=== PATIENT | male | born 1950 | race Hispanic/Latino ===

== ENCOUNTER 2017-08-30 18:43 | Emergency (ER) | payer BC, MEDICARE ==
[2017-08-30 19:28] LABS: RAPID GROUP A STREP NEGATIVE (NEGATIVE)
[2017-08-30 19:28] LABS: APPEARANCE,URINE Clear (CLEAR); BILIRUBIN,URINE Negative (NEGATIVE); COLOR,URINE Yellow (YELLOW); GLUCOSE, URINE (UA) Negative (NEGATIVE); KETONES,URINE Negative (NEGATIVE); LEUKOCYTE ESTERASE ,URINE Negative (NEGATIVE); NITRATE,URINE Negative (NEGATIVE); OCCULT BLOOD,URINE Negative (NEGATIVE); PH,URINE 7.5 (5.0-8.0); PROTEIN,URINE Negative (NEGATIVE)
== END 2017-08-30 20:19 | disposition home or self-care (01) ==
LOC: EDH 18:43
DX: J01.90 Acute sinusitis, unspecified (principal); R50.81 Fever presenting with conditions classified elsewhere; R05 Cough; E11.9 Type 2 diabetes mellitus without complications; I10 Essential (primary) hypertension; E78.5 Hyperlipidemia, unspecified; I25.10 Atherosclerotic heart disease of native coronary artery without angina pectoris; Z88.8 Allergy status to other drugs, medicaments and biological substances; Z87.891 Personal history of nicotine dependence
CPT/HCPCS: 71045; 81003; 87804; 87880

== ENCOUNTER 2020-02-03 14:02 | Emergency (ER) | payer MEDICARE ==
[2020-02-03] MEDS ORDERED: DiphenhydrAMINE HCL 50 MG/ML VIAL ONE (14:29)
[2020-02-03] MEDS ORDERED: DEXAMETHASONE SOD PHOSPHATE 10MG/ML 1ML VIAL ONE (14:29)
== END 2020-02-03 15:50 | disposition home or self-care (01) ==
LOC: EDH 14:02
DX: T63.461A Toxic effect of venom of wasps, accidental (unintentional), initial encounter (principal); M79.89 Other specified soft tissue disorders; I10 Essential (primary) hypertension; E11.9 Type 2 diabetes mellitus without complications; E78.5 Hyperlipidemia, unspecified; I25.10 Atherosclerotic heart disease of native coronary artery without angina pectoris; Z87.891 Personal history of nicotine dependence; Y92.096 Garden or yard of other non-institutional residence as the place of occurrence of the external cause
CPT/HCPCS: 96372 ×2; 99284; J1100; J1200

== ENCOUNTER 2021-03-26 14:45 | Inpatient (IN) | payer MEDICARE ==
[~2021-03-26] VITALS: Ht 165.1 cm; Wt 96.1 kg
[2021-03-26 15:14] LABS: BASOPHILS % (AUTO) 0.9 % (0.0-5.0); EOSINOPHILS % (AUTO) 3.3 % (0.0-8.0); LYMPHOCYTES % (AUTO) 33.2 % (21.0-51.0); MEAN CORPUSCULAR HEMOGLOBIN 26.6 pg (27.0-33.0); MEAN CORPUSCULAR HGB CONC 31.7 g/dL (32.0-36.0); MEAN CORPUSCULAR VOLUME 83.8 fL (79-99); MONOCYTES % (AUTO) 10.4 % (3.0-13.0); NEUTROPHILS % (AUTO) 51.9 % (40.0-77.0); PLATELET COUNT (AUTO) 237 K/uL (130-400); RED BLOOD CELL COUNT(AUTO) 4.89 MIL/uL (4.50-6.20); WHITE BLOOD COUNT (AUTO) 10.2 K/uL (4.8-10.8)
[2021-03-26 15:15] LABS: APPEARANCE,URINE Clear (CLEAR); BILIRUBIN,URINE Negative (NEGATIVE); COLOR,URINE Yellow (YELLOW); GLUCOSE, URINE (UA) Negative (NEGATIVE); KETONES,URINE Negative (NEGATIVE); LEUKOCYTE ESTERASE ,URINE Negative (NEGATIVE); NITRATE,URINE Negative (NEGATIVE); OCCULT BLOOD,URINE Negative (NEGATIVE); PH,URINE 5.5 (5.0-8.0); PROTEIN,URINE POS 2+ mg/dL (NEGATIVE)
[2021-03-26 15:18] LABS: CREATININE 1.1 mg/dL (0.5-1.5); POTASSIUM 3.8 mmol/L (3.5-5.1)
[2021-03-26 15:27] LABS: ALBUMIN 3.8 g/dL (3.5-5.0); BILIRUBIN,TOTAL 1.4 mg/dL (0.2-1.0); TOTAL PROTEIN, SERUM 8.7 g/dL (6.0-8.3)
[2021-03-26] MEDS ORDERED: DILTIAZEM 25MG INJ IVP SCH (15:30)
[2021-03-26 15:37] LABS: BACTERIA,URINE Few /HPF (None Seen); RBC,URINE 0-1 /HPF (0-1); SQUAMOUS EPITHELIAL CELL,UR Few /HPF (0-2)
[2021-03-26 15:38] LABS: MUCUS,URINE Rare LPF (None Seen)
[2021-03-26] MEDS ORDERED: 0.9%NACL 1000ML 1,000 ML IV ONE (16:00)
[2021-03-26] MEDS: DILTIAZEM 125MG+100 ML NS 125 ML IV SCH ×2 (17:13→17:55)
[2021-03-26] MEDS ORDERED: ASPI-1197 PO (18:00)
[2021-03-26] MEDS ORDERED: METO-391 PO (18:00)
[2021-03-26] MEDS ORDERED: METF-444 PO (18:00)
[2021-03-26] MEDS ORDERED: APIX5TAB PO (18:00)
[2021-03-26] MEDS ORDERED: ROSU20TA31 PO (18:00)
[2021-03-26] MEDS ORDERED: LISI40TA9 PO (18:00)
[2021-03-26] MEDS ORDERED: AMLO2.5T4 PO (18:00)
[2021-03-26] MEDS ORDERED: ALLO100T PO (18:00)
[2021-03-26] MEDS: INSULIN HUMULIN R 100 UNIT/ML 3ML SQ SCH (21:00)
[2021-03-26] MEDS: ENOXAPARIN SODIUM 100 MG/1 ML SQ SCH (21:46)
[2021-03-26 22:07] LABS: MAGNESIUM 1.6 mg/dL (1.80-2.40)
[2021-03-26 22:53] VITALS: BP 125/78
[2021-03-27 01:16] LABS: AMPHET/METH SCREEN,URINE NEGATIVE (NEGATIVE); BARBITURATE SCREEN, URINE NEGATIVE (NEGATIVE); BENZODIAZEPINES SCREEN,URINE NEGATIVE (NEGATIVE); CANNABINOID SCREEN,URINE NEGATIVE (NEGATIVE); COCAINE SCREEN,URINE NEGATIVE (NEGATIVE); OPIATE SCREEN,URINE NEGATIVE (NEGATIVE); PHENCYCLIDINE SCREEN,URINE NEGATIVE (NEGATIVE)
[2021-03-27 04:17] VITALS: BP 111/51
[2021-03-27 06:16] LABS: EOSINOPHILS % (AUTO) 3.7 % (0.0-8.0); HEMATOCRIT 37.8 % (42-54); LYMPHOCYTES % (AUTO) 30.4 % (21.0-51.0); MEAN CORPUSCULAR HEMOGLOBIN 26.5 pg (27.0-33.0); MEAN CORPUSCULAR HGB CONC 31.5 g/dL (32.0-36.0); MEAN CORPUSCULAR VOLUME 84.2 fL (79-99); MONOCYTES % (AUTO) 9.8 % (3.0-13.0); NEUTROPHILS % (AUTO) 54.7 % (40.0-77.0); PLATELET COUNT (AUTO) 186 K/uL (130-400); RED BLOOD CELL COUNT(AUTO) 4.49 MIL/uL (4.50-6.20); RED CELL DISTRIBUTION WIDTH 15.1 % (11.0-15.5); WHITE BLOOD COUNT (AUTO) 8.1 K/uL (4.8-10.8)
[2021-03-27] MEDS ORDERED: MAGNESIUM 2GM PREMIX 50ML 50 ML IV SCH (06:30)
[2021-03-27 06:35] LABS: CREATININE 0.9 mg/dL (0.5-1.5); MAGNESIUM 1.7 mg/dL (1.80-2.40); POTASSIUM 3.5 mmol/L (3.5-5.1)
[2021-03-27] MEDS: INSULIN HUMULIN R 100 UNIT/ML 3ML SQ SCH ×4 (07:30→20:57)
[2021-03-27] MEDS ORDERED: POTASSIUM CHLORIDE 20MEQ/100ML 100 ML IV PRN (08:00)
[2021-03-27] MEDS ORDERED: POTASSIUM CHLORIDE 10% ELIXIR 20 MEQ/15 ML UDCUP PO PRN (08:00)
[2021-03-27 08:52] VITALS: BP 121/66
[2021-03-27] MEDS: ALLOPURINOL 100 MG TABLET PO SCH (09:18)
[2021-03-27] MEDS: ENOXAPARIN SODIUM 100 MG/1 ML SQ SCH ×2 (09:19→20:51)
[2021-03-27] MEDS: ASPIRIN 81 MG EC TAB PO SCH (09:19)
[2021-03-27] MEDS: ATORVASTATIN 40 MG TABLET PO SCH (09:19)
[2021-03-27] MEDS: PANTOPRAZOLE 40 MG TAB DR PO SCH (09:19)
[2021-03-27] MEDS: KCL 20 MEQ ERTAB PO PRN ×2 (09:21→16:29)
[2021-03-27] MEDS: METOPROLOL SUCCINATE 50 MG TAB.SR.24H PO SCH ×2 (10:55→20:50)
[2021-03-27 12:00] VITALS: BP 121/62
[2021-03-27] MEDS: DIGOXIN 250 MCG/ML 2ML AMP IV SCH ×3 (12:38→20:50)
[2021-03-27] MEDS: DILTIAZEM 125MG+100 ML NS 125 ML IV SCH (13:10)
[2021-03-27 16:59] VITALS: BP 129/89
[2021-03-27 20:01] VITALS: BP 140/73
[2021-03-27 23:56] VITALS: BP 103/58
[2021-03-28 03:43] VITALS: BP 120/66
[2021-03-28] MEDS: INSULIN HUMULIN R 100 UNIT/ML 3ML SQ SCH ×4 (07:30→21:00)
[2021-03-28 08:45] VITALS: BP 144/80
[2021-03-28] MEDS: ENOXAPARIN SODIUM 100 MG/1 ML SQ SCH ×2 (08:51→21:16)
[2021-03-28] MEDS: AMLODIPINE 2.5 MG TAB PO SCH (08:51)
[2021-03-28] MEDS: ASPIRIN 81 MG EC TAB PO SCH (08:51)
[2021-03-28] MEDS: ATORVASTATIN 40 MG TABLET PO SCH (08:51)
[2021-03-28] MEDS: PANTOPRAZOLE 40 MG TAB DR PO SCH (08:51)
[2021-03-28] MEDS: ALLOPURINOL 100 MG TABLET PO SCH (08:51)
[2021-03-28] MEDS: METOPROLOL SUCCINATE 50 MG TAB.SR.24H PO SCH ×2 (08:52→21:16)
[2021-03-28] MEDS: DIGOXIN 125 MCG TABLET PO SCH (08:53)
[2021-03-28] MEDS ORDERED: NON-FORMULARY MEDICATION 1 EACH (Rosuvastatin Calcium 20 MG) PO SCH (09:00)
[2021-03-28] MEDS ORDERED: ASPIRIN 81MG CHEW TAB PO SCH (09:00)
[2021-03-28 09:30] LABS: HEMATOCRIT 37.2 % (42-54); MEAN CORPUSCULAR HEMOGLOBIN 26.6 pg (27.0-33.0); MEAN CORPUSCULAR HGB CONC 31.5 g/dL (32.0-36.0); MEAN CORPUSCULAR VOLUME 84.5 fL (79-99); RED BLOOD CELL COUNT(AUTO) 4.4 MIL/uL (4.50-6.20); RED CELL DISTRIBUTION WIDTH 15.1 % (11.0-15.5); WHITE BLOOD COUNT (AUTO) 6.6 K/uL (4.8-10.8)
[2021-03-28 09:43] LABS: ALBUMIN 3.2 g/dL (3.5-5.0); BILIRUBIN,TOTAL 1.3 mg/dL (0.2-1.0); CREATININE 1.1 mg/dL (0.5-1.5); POTASSIUM 4.4 mmol/L (3.5-5.1); TOTAL PROTEIN, SERUM 7.5 g/dL (6.0-8.3)
[2021-03-28 12:08] VITALS: BP 123/71
[2021-03-28 16:48] VITALS: BP 134/75
[2021-03-28 19:33] VITALS: BP 122/76
[2021-03-28] MEDS: DILTIAZEM 125MG+100 ML NS 125 ML IV SCH (21:16)
[2021-03-28 23:54] VITALS: BP 117/71
[2021-03-29 03:13] VITALS: BP 119/72
[2021-03-29 04:51] LABS: HEMATOCRIT 38.6 % (42-54); MEAN CORPUSCULAR HEMOGLOBIN 26.6 pg (27.0-33.0); MEAN CORPUSCULAR HGB CONC 31.6 g/dL (32.0-36.0); MEAN CORPUSCULAR VOLUME 84.1 fL (79-99); RED BLOOD CELL COUNT(AUTO) 4.59 MIL/uL (4.50-6.20); WHITE BLOOD COUNT (AUTO) 6.7 K/uL (4.8-10.8)
[2021-03-29 05:04] LABS: ALBUMIN 3.3 g/dL (3.5-5.0); BILIRUBIN,TOTAL 1.3 mg/dL (0.2-1.0); CREATININE 0.9 mg/dL (0.5-1.5); POTASSIUM 4.1 mmol/L (3.5-5.1); TOTAL PROTEIN, SERUM 7.6 g/dL (6.0-8.3)
[2021-03-29] MEDS: INSULIN HUMULIN R 100 UNIT/ML 3ML SQ SCH (07:30)
[2021-03-29 08:14] VITALS: BP 132/78
[2021-03-29] MEDS ORDERED: MAGNESIUM 4GM PREMIX 100ML 100 ML IV PRN (08:30)
[2021-03-29] MEDS: PANTOPRAZOLE 40 MG TAB DR PO SCH (08:51)
[2021-03-29] MEDS: ASPIRIN 81 MG EC TAB PO SCH (08:51)
[2021-03-29] MEDS: ALLOPURINOL 100 MG TABLET PO SCH (08:51)
[2021-03-29] MEDS: AMLODIPINE 2.5 MG TAB PO SCH (08:51)
[2021-03-29] MEDS: ATORVASTATIN 40 MG TABLET PO SCH (08:51)
[2021-03-29] MEDS: DIGOXIN 125 MCG TABLET PO SCH (08:58)
[2021-03-29] MEDS ORDERED: APIXABAN 5 MG TABLET PO SCH (09:00)
[2021-03-29] MEDS ORDERED: METOPROLOL SUCCINATE 50 MG TAB.SR.24H PO SCH ×2 (09:00)
== END 2021-03-29 12:15 | disposition home or self-care (01) | DRG 310 ==
LOC: EDH 14:45 → EDHIP 17:33 → OBSVTOIN 17:33 → 4DH 22:43
PROVIDERS: ADMIT Internal Medicine; ATTEND Internal Medicine
DX: I48.0 Paroxysmal atrial fibrillation (principal); E78.5 Hyperlipidemia, unspecified; Z20.822 Contact with and (suspected) exposure to COVID-19; E11.51 Type 2 diabetes mellitus with diabetic peripheral angiopathy without gangrene; I11.9 Hypertensive heart disease without heart failure; E66.9 Obesity, unspecified; I25.10 Atherosclerotic heart disease of native coronary artery without angina pectoris; E78.00 Pure hypercholesterolemia, unspecified; M10.9 Gout, unspecified; Z68.35 Body mass index [BMI] 35.0-35.9, adult; Z79.01 Long term (current) use of anticoagulants; Z79.82 Long term (current) use of aspirin; Z79.84 Long term (current) use of oral hypoglycemic drugs; Z79.899 Other long term (current) drug therapy; Z87.891 Personal history of nicotine dependence; Z95.1 Presence of aortocoronary bypass graft; Z88.8 Allergy status to other drugs, medicaments and biological substances; Z82.49 Family history of ischemic heart disease and other diseases of the circulatory system; Z83.3 Family history of diabetes mellitus; Z82.3 Family history of stroke
CPT/HCPCS: 36415; 71045; 80048; 80053; 80305; 81001; 82550; 82948; 83735; 83874; 83880; 84145; 84443; 84481; 84484; 85025; 85027; 87635; 93005; 93306; 93356; 99291; G0378; J1160; J1650; J1815; J3475; J3490

== ENCOUNTER 2021-04-12 16:54 | Observation (INO) | payer MEDICARE ==
[~2021-04-12] VITALS: Ht 165.1 cm; Wt 99.8 kg
[~2021-04-12 16:54] MED LIST: ALLO100T PO; AMLO2.5T4 PO; APIX5TAB PO; ASPI-1197 PO; LISI40TA9 PO; METF-444 PO; METO-391 PO; ROSU20TA31 PO
[2021-04-12] MEDS ORDERED: DILTIAZEM 25MG INJ IVP ONE (17:14)
[2021-04-12] MEDS ORDERED: DILTIAZEM 125 MG/25 ML INJ IV ONE (17:14)
[2021-04-12] MEDS ORDERED: 0.9%NACL 100ML 100 ML ONE (17:15)
[2021-04-12 17:21] LABS: BASOPHILS % (AUTO) 0.7 % (0.0-5.0); EOSINOPHILS % (AUTO) 2.3 % (0.0-8.0); HEMATOCRIT 33.5 % (42-54); MEAN CORPUSCULAR HEMOGLOBIN 25.9 pg (27.0-33.0); MEAN CORPUSCULAR HGB CONC 31.9 g/dL (32.0-36.0); MEAN CORPUSCULAR VOLUME 81.1 fL (79-99); NEUTROPHILS % (AUTO) 60.6 % (40.0-77.0); PLATELET COUNT (AUTO) 232 K/uL (130-400); RED BLOOD CELL COUNT(AUTO) 4.13 MIL/uL (4.50-6.20); RED CELL DISTRIBUTION WIDTH 14.8 % (11.0-15.5); WHITE BLOOD COUNT (AUTO) 9.4 K/uL (4.8-10.8)
[2021-04-12] MEDS ORDERED: ASPIRIN 81MG CHEW TAB PO ONE (17:30)
[2021-04-12] MEDS ORDERED: DILTIAZEM 125 MG/25 ML INJ 125 MG in 0.9%NACL 100ML 100 ML IV SCH (17:30)
[2021-04-12] MEDS ORDERED: DILTIAZEM 25MG INJ IVP SCH (17:30)
[2021-04-12 17:32] LABS: CREATININE 1.1 mg/dL (0.5-1.5); POTASSIUM 3.8 mmol/L (3.5-5.1)
[2021-04-12 17:33] LABS: INR 1.1 (0.85-1.15); PROTHROMBIN TIME 11.9 SEC (9.6-11.6)
[2021-04-12 17:34] LABS: PARTIAL THROMBOPLASTIN TIME 28.1 SEC (26.3-35.5)
[2021-04-12 17:36] LABS: ALBUMIN 3.5 g/dL (3.5-5.0); BILIRUBIN,TOTAL 1.4 mg/dL (0.2-1.0); MAGNESIUM 1.7 mg/dL (1.80-2.40); TOTAL PROTEIN, SERUM 8.2 g/dL (6.0-8.3)
[2021-04-12] MEDS ORDERED: MAGNESIUM 2GM PREMIX 50ML 50 ML IV SCH ×3 (18:00→20:00)
[2021-04-12] MEDS ORDERED: POTASSIUM CHLORIDE 10% ELIXIR 20 MEQ/15 ML UDCUP PO ONE (18:00)
[2021-04-12] MEDS ORDERED: 0.9%NACL 1000ML 1,000 ML IV SCH (19:00)
[2021-04-12] MEDS ORDERED: ONDANSETRON 4MG INJ IV PRN (19:00)
[2021-04-12] MEDS ORDERED: NITROGLYCERIN 0.4 MG SL TAB SL PRN (19:00)
[2021-04-12] MEDS ORDERED: ACETAMINOPHEN 325 MG TAB PO PRN ×2 (19:00)
[2021-04-12 19:02] LABS: APPEARANCE,URINE Clear (CLEAR); BILIRUBIN,URINE Negative (NEGATIVE); COLOR,URINE Yellow (YELLOW); GLUCOSE, URINE (UA) Negative (NEGATIVE); KETONES,URINE Negative (NEGATIVE); LEUKOCYTE ESTERASE ,URINE Negative (NEGATIVE); NITRATE,URINE Negative (NEGATIVE); OCCULT BLOOD,URINE Negative (NEGATIVE); PROTEIN,URINE Negative (NEGATIVE); UROBILINOGEN,URINE 0.2 mg/dL (0.2-1.0)
[2021-04-12 19:05] LABS: HEMOGLOBIN A1C 7.2 % (4.0-6.0)
[2021-04-12 19:09] LABS: AMPHET/METH SCREEN,URINE NEGATIVE (NEGATIVE); BARBITURATE SCREEN, URINE NEGATIVE (NEGATIVE); BENZODIAZEPINES SCREEN,URINE NEGATIVE (NEGATIVE); CANNABINOID SCREEN,URINE NEGATIVE (NEGATIVE); COCAINE SCREEN,URINE NEGATIVE (NEGATIVE); OPIATE SCREEN,URINE NEGATIVE (NEGATIVE); PHENCYCLIDINE SCREEN,URINE NEGATIVE (NEGATIVE)
[2021-04-12] MEDS ORDERED: ASPIRIN 81 MG EC TAB PO SCH (20:00)
[2021-04-12] MEDS: APIXABAN 5 MG TABLET PO SCH (21:22)
[2021-04-12] MEDS: FAMOTIDINE 20MG TAB PO SCH (21:22)
[2021-04-13 06:55] LABS: BASOPHILS % (AUTO) 1.1 % (0.0-5.0); EOSINOPHILS % (AUTO) 4.1 % (0.0-8.0); HEMATOCRIT 31.8 % (42-54); LYMPHOCYTES % (AUTO) 23.5 % (21.0-51.0); MEAN CORPUSCULAR HEMOGLOBIN 25.7 pg (27.0-33.0); MEAN CORPUSCULAR HGB CONC 30.5 g/dL (32.0-36.0); MEAN CORPUSCULAR VOLUME 84.1 fL (79-99); MONOCYTES % (AUTO) 10.8 % (3.0-13.0); PLATELET COUNT (AUTO) 177 K/uL (130-400); RED BLOOD CELL COUNT(AUTO) 3.78 MIL/uL (4.50-6.20); RED CELL DISTRIBUTION WIDTH 14.9 % (11.0-15.5); WHITE BLOOD COUNT (AUTO) 6.7 K/uL (4.8-10.8)
[2021-04-13] MEDS ORDERED: MAGNESIUM 2GM PREMIX 50ML 50 ML IV SCH (07:00)
[2021-04-13 07:01] LABS: RETICULOCYTE % (AUTO) 2.62 % (0.42-2.23)
[2021-04-13] MEDS ORDERED: METOPROLOL SUCCINATE 50 MG TAB.SR.24H PO ONE ×2 (07:03→07:30)
[2021-04-13 07:28] LABS: ALBUMIN 3.2 g/dL (3.5-5.0); BILIRUBIN,TOTAL 1.6 mg/dL (0.2-1.0); POTASSIUM 3.8 mmol/L (3.5-5.1); TOTAL PROTEIN, SERUM 7.3 g/dL (6.0-8.3)
[2021-04-13] MEDS ORDERED: COMPOUND IV MISC 1 EACH IVSOLN MISC PRN (07:30)
[2021-04-13] MEDS ORDERED: EPOETIN ALFA-EPBX (NON-ESRD) 10,000 UNIT/ML VIAL SQ SCH (07:30)
[2021-04-13] MEDS ORDERED: IRON SUCROSE COMPLEX 500 MG in 0.9%NACL 50ML 50 ML IV SCH (07:30)
[2021-04-13 07:38] LABS: BILIRUBIN,DIRECT 0.3 mg/dL (0.0-0.3)
[2021-04-13 07:51] LABS: % IRON SATURATION 6.9 % (30-44)
[2021-04-13] MEDS: APIXABAN 5 MG TABLET PO SCH (08:56)
[2021-04-13] MEDS: FAMOTIDINE 20MG TAB PO SCH (08:57)
[2021-04-13] MEDS ORDERED: METOPROLOL SUCCINATE 50 MG TAB.SR.24H PO SCH (09:00)
[2021-04-13] MEDS ORDERED: ATORVASTATIN 40 MG TABLET PO SCH (09:00)
[2021-04-13] MEDS ORDERED: METFORMIN HCL 500 MG TABLET PO SCH (09:00)
[2021-04-13] MEDS ORDERED: ALLOPURINOL 100 MG TABLET PO SCH (09:00)
[2021-04-13] MEDS ORDERED: ASPIRIN 81MG CHEW TAB PO SCH (09:00)
[2021-04-13] MEDS ORDERED: LISINOPRIL 40 MG TABLET PO SCH (09:00)
[2021-04-13] MEDS ORDERED: AMLODIPINE 2.5 MG TAB PO SCH (09:00)
[2021-04-13] MEDS ORDERED: LISINOPRIL 20 MG TABLET PO SCH (09:00)
[2021-04-13] MEDS ORDERED: LISI30TA4 PO (09:05)
[2021-04-13] MEDS ORDERED: METO-409 PO (09:05)
[2021-04-13 14:42] VITALS: BP 127/62
== END 2021-04-13 14:40 | disposition home or self-care (01) ==
LOC: EDH 16:54 → EDHIP 18:38 → INTOOBSV 18:38 → EDHIP 04-13 14:40
PROVIDERS: ADMIT Internal Medicine; ATTEND Internal Medicine
DX: I48.20 Chronic atrial fibrillation, unspecified (principal); Z20.822 Contact with and (suspected) exposure to COVID-19; I25.10 Atherosclerotic heart disease of native coronary artery without angina pectoris; E83.42 Hypomagnesemia; E66.9 Obesity, unspecified; I10 Essential (primary) hypertension; I71.4 Abdominal aortic aneurysm, without rupture; E78.5 Hyperlipidemia, unspecified; E78.00 Pure hypercholesterolemia, unspecified; M10.9 Gout, unspecified; Z68.36 Body mass index [BMI] 36.0-36.9, adult; Z79.84 Long term (current) use of oral hypoglycemic drugs; Z87.891 Personal history of nicotine dependence; Z79.01 Long term (current) use of anticoagulants; Z95.1 Presence of aortocoronary bypass graft; Z79.82 Long term (current) use of aspirin; Z79.899 Other long term (current) drug therapy; Z98.890 Other specified postprocedural states
CPT/HCPCS: 36415 ×2; 71045; 80053 ×2; 80061; 80305; 81003; 82248; 82550 ×2; 82607; 82728; 82746; 83036; 83540; 83550; 83735 ×2; 83874 ×2; 83880; 84443; 84484 ×3; 85025 ×2; 85045; 85610; 85730; 87635; 93005 ×2; 96365; 96366; 96367; 96372; 96375; 99291; G0378 ×20; J1756; J3475; J3490 ×3; Q5106

== ENCOUNTER 2021-06-09 17:21 | Inpatient (IN) | payer MEDICARE ==
[~2021-06-09] VITALS: Ht 165.1 cm; Wt 94.3 kg
[~2021-06-09 17:21] MED LIST changes: -AMLO2.5T4 PO; +LISI30TA4 PO; -LISI40TA9 PO; -METO-391 PO; +METO-409 PO
[2021-06-09] MEDS ORDERED: LACTATED RINGERS 1000ML 1,000 ML IV ONE (17:30)
[2021-06-09 17:45] LABS: BASOPHILS % (AUTO) 0.9 % (0.0-5.0); EOSINOPHILS % (AUTO) 2.5 % (0.0-8.0); HEMATOCRIT 37.7 % (42-54); MEAN CORPUSCULAR HEMOGLOBIN 24.4 pg (27.0-33.0); MEAN CORPUSCULAR VOLUME 81.4 fL (79-99); MONOCYTES % (AUTO) 9.5 % (3.0-13.0); NEUTROPHILS % (AUTO) 60.7 % (40.0-77.0); PLATELET COUNT (AUTO) 186 K/uL (130-400); RED BLOOD CELL COUNT(AUTO) 4.63 MIL/uL (4.50-6.20); RED CELL DISTRIBUTION WIDTH 15.9 % (11.0-15.5); WHITE BLOOD COUNT (AUTO) 7.9 K/uL (4.8-10.8)
[2021-06-09 17:57] LABS: CREATININE 1.1 mg/dL (0.5-1.5); INR 1.1 (0.85-1.15); POTASSIUM 3.8 mmol/L (3.5-5.1); PROTHROMBIN TIME 11.9 SEC (9.6-11.6)
[2021-06-09 17:58] LABS: PARTIAL THROMBOPLASTIN TIME 29.1 SEC (26.3-35.5)
[2021-06-09] MEDS ORDERED: DILTIAZEM 25MG INJ IVP ONE (18:00)
[2021-06-09 18:05] LABS: B-TYPE NATRIURETIC PEPTIDE 457 pg/mL (0-100)
[2021-06-09 18:08] LABS: ALBUMIN 3.6 g/dL (3.5-5.0); BILIRUBIN,TOTAL 1.7 mg/dL (0.2-1.0); MAGNESIUM 1.8 mg/dL (1.80-2.40); TOTAL PROTEIN, SERUM 8.1 g/dL (6.0-8.3)
[2021-06-09] MEDS ORDERED: SOTALOL HCL 80 MG TABLET PO SCH (18:30)
[2021-06-09 18:41] LABS: APPEARANCE,URINE Clear (CLEAR); BILIRUBIN,URINE Negative (NEGATIVE); COLOR,URINE Yellow (YELLOW); GLUCOSE, URINE (UA) Negative (NEGATIVE); KETONES,URINE Negative (NEGATIVE); LEUKOCYTE ESTERASE ,URINE Negative (NEGATIVE); NITRATE,URINE Negative (NEGATIVE); OCCULT BLOOD,URINE Negative (NEGATIVE); PH,URINE 7.5 (5.0-8.0); PROTEIN,URINE POS 1+ mg/dL (NEGATIVE)
[2021-06-09 18:47] LABS: BACTERIA,URINE Rare /HPF (None Seen); RBC,URINE 0-1 /HPF (0-1); SQUAMOUS EPITHELIAL CELL,UR Rare /HPF (0-2); WBC,URINE 0-1 /HPF (0-1)
[2021-06-09] MEDS ORDERED: ONDANSETRON 4MG INJ IV PRN (20:00)
[2021-06-09] MEDS ORDERED: ACETAMINOPHEN 325 MG TAB PO PRN (20:00)
[2021-06-09] MEDS ORDERED: NITROGLYCERIN 0.4 MG SL TAB SL PRN (20:00)
[2021-06-09] MEDS: SOTALOL HCL 80 MG TABLET PO SCH (20:34)
[2021-06-10 05:01] LABS: HEMOGLOBIN A1C 6.6 % (4.0-6.0)
[2021-06-10] MEDS: INSULIN HUMULIN R 100 UNIT/ML 3ML SQ SCH ×4 (07:30→21:00)
[2021-06-10] MEDS: SOTALOL HCL 80 MG TABLET PO SCH ×2 (08:47→21:06)
[2021-06-10] MEDS: ASPIRIN 81MG CHEW TAB PO SCH (08:47)
[2021-06-10] MEDS: FAMOTIDINE 20MG TAB PO SCH (08:47)
[2021-06-10] MEDS: APIXABAN 5 MG TABLET PO SCH ×2 (10:00→21:06)
[2021-06-10 10:23] LABS: CREATININE 0.7 mg/dL (0.5-1.5); MAGNESIUM 1.8 mg/dL (1.80-2.40); POTASSIUM 3.8 mmol/L (3.5-5.1)
[2021-06-10] MEDS: DILTIAZEM 60MG TAB PO SCH ×2 (11:25→17:48)
[2021-06-10] MEDS: LISINOPRIL 10 MG TABLET PO SCH (12:52)
[2021-06-10] MEDS: ATORVASTATIN 20 MG TABLET PO SCH (21:06)
[2021-06-11] MEDS: DILTIAZEM 60MG TAB PO SCH ×5 (00:17→23:57)
[2021-06-11 03:57] VITALS: BP 131/74
[2021-06-11] MEDS ORDERED: SOTA120T PO (04:44)
[2021-06-11] MEDS ORDERED: LISI10TA24 PO (04:45)
[2021-06-11] MEDS: INSULIN HUMULIN R 100 UNIT/ML 3ML SQ SCH ×4 (05:47→20:36)
[2021-06-11 08:21] VITALS: BP 137/77
[2021-06-11] MEDS: SOTALOL HCL 80 MG TABLET PO SCH ×2 (09:26→21:50)
[2021-06-11] MEDS: APIXABAN 5 MG TABLET PO SCH ×2 (09:26→21:40)
[2021-06-11] MEDS: LISINOPRIL 10 MG TABLET PO SCH (09:26)
[2021-06-11] MEDS: ASPIRIN 81MG CHEW TAB PO SCH (09:26)
[2021-06-11] MEDS: FAMOTIDINE 20MG TAB PO SCH (09:26)
[2021-06-11 11:39] VITALS: BP 102/52
[2021-06-11 16:00] VITALS: BP 119/64
[2021-06-11] MEDS: LACTULOSE 20 GM/30 ML UDCUP PO PRN (18:52)
[2021-06-11 19:58] VITALS: BP 118/66
[2021-06-11] MEDS: ATORVASTATIN 20 MG TABLET PO SCH (21:40)
[2021-06-11 23:43] VITALS: BP 116/52
[2021-06-12 03:35] VITALS: BP 91/48
[2021-06-12] MEDS: DILTIAZEM 60MG TAB PO SCH (06:00)
[2021-06-12] MEDS: INSULIN HUMULIN R 100 UNIT/ML 3ML SQ SCH ×4 (06:24→21:00)
[2021-06-12 07:00] VITALS: BP 114/61
[2021-06-12] MEDS: FAMOTIDINE 20MG TAB PO SCH (08:35)
[2021-06-12] MEDS: APIXABAN 5 MG TABLET PO SCH ×2 (08:35→20:06)
[2021-06-12] MEDS: LISINOPRIL 10 MG TABLET PO SCH (08:36)
[2021-06-12] MEDS: ASPIRIN 81MG CHEW TAB PO SCH (08:36)
[2021-06-12] MEDS: SOTALOL HCL 80 MG TABLET PO SCH ×2 (08:37→20:05)
[2021-06-12] MEDS: DILTIAZEM 120MG SR CAP PO SCH (10:01)
[2021-06-12 11:00] VITALS: BP 136/66
[2021-06-12 15:00] VITALS: BP 128/51
[2021-06-12 19:51] VITALS: BP 135/70
[2021-06-12] MEDS: ATORVASTATIN 20 MG TABLET PO SCH (20:05)
[2021-06-12 23:13] VITALS: BP 106/54
[2021-06-13] MEDS: LACTULOSE 20 GM/30 ML UDCUP PO PRN (03:49)
[2021-06-13 04:00] VITALS: BP 115/57
[2021-06-13] MEDS: INSULIN HUMULIN R 100 UNIT/ML 3ML SQ SCH ×4 (07:26→21:00)
[2021-06-13 07:51] VITALS: BP 121/51
[2021-06-13] MEDS: FAMOTIDINE 20MG TAB PO SCH (08:27)
[2021-06-13] MEDS: ASPIRIN 81MG CHEW TAB PO SCH (08:27)
[2021-06-13] MEDS: APIXABAN 5 MG TABLET PO SCH ×2 (08:28→20:00)
[2021-06-13] MEDS: LISINOPRIL 10 MG TABLET PO SCH (08:28)
[2021-06-13] MEDS: DILTIAZEM 120MG SR CAP PO SCH (08:28)
[2021-06-13] MEDS: SOTALOL HCL 80 MG TABLET PO SCH ×2 (08:29→20:01)
[2021-06-13 12:04] VITALS: BP 126/66
[2021-06-13 16:00] VITALS: BP 135/72
[2021-06-13 19:22] VITALS: BP 145/58
[2021-06-13] MEDS: ATORVASTATIN 20 MG TABLET PO SCH (20:00)
[2021-06-13 23:58] VITALS: BP 106/53
[2021-06-14 04:40] VITALS: BP 116/66
[2021-06-14] MEDS: INSULIN HUMULIN R 100 UNIT/ML 3ML SQ SCH (07:09)
[2021-06-14] MEDS ORDERED: SOTA80TA PO (07:49)
[2021-06-14] MEDS ORDERED: DILT120C89 PO (07:49)
[2021-06-14 08:09] VITALS: BP_SYST 142; BP_SYST 147; BP_DIAS 69; BP_DIAS 80
[2021-06-14] MEDS: FAMOTIDINE 20MG TAB PO SCH (08:21)
[2021-06-14] MEDS: ASPIRIN 81MG CHEW TAB PO SCH (08:21)
[2021-06-14] MEDS: LISINOPRIL 10 MG TABLET PO SCH (08:21)
[2021-06-14] MEDS: DILTIAZEM 120MG SR CAP PO SCH (08:21)
[2021-06-14] MEDS: SOTALOL HCL 80 MG TABLET PO SCH (08:21)
[2021-06-14] MEDS: APIXABAN 5 MG TABLET PO SCH (08:22)
== END 2021-06-14 10:25 | disposition home or self-care (01) | DRG 309 ==
LOC: EDH 17:21 → EDHIP 19:49 → 2DH 06-11 02:33
PROVIDERS: ADMIT Internal Medicine; ATTEND Internal Medicine
DX: I48.0 Paroxysmal atrial fibrillation (principal); D68.69 Other thrombophilia; E78.5 Hyperlipidemia, unspecified; E78.00 Pure hypercholesterolemia, unspecified; E11.9 Type 2 diabetes mellitus without complications; I25.10 Atherosclerotic heart disease of native coronary artery without angina pectoris; I11.9 Hypertensive heart disease without heart failure; Z60.2 Problems related to living alone; Z95.1 Presence of aortocoronary bypass graft; Z87.891 Personal history of nicotine dependence; Z79.01 Long term (current) use of anticoagulants; Z79.899 Other long term (current) drug therapy; Z88.8 Allergy status to other drugs, medicaments and biological substances; Z82.3 Family history of stroke; Z83.3 Family history of diabetes mellitus; Z82.49 Family history of ischemic heart disease and other diseases of the circulatory system
CPT/HCPCS: 36415; 71045; 80048; 80053; 81001; 82550; 82948; 83036; 83735; 83874; 83880; 84443; 84484; 85025; 85610; 85730; 93005; 99291; G0378; J3490; J7120

== ENCOUNTER → 2021-08-30 | Outpatient (CLI) | payer MEDICARE ==
[~2021-08-30] VITALS: Ht 175.3 cm; Wt 96.4 kg
[~2021-08-30] MED LIST changes: +DILT120C89 PO; +DILT120T PO; +LISI10TA24 PO; -LISI30TA4 PO; -METO-409 PO; +SOTA80TA PO
[2021-08-30 15:18] LABS: BASOPHILS % (AUTO) 0.7 % (0.0-5.0); EOSINOPHILS % (AUTO) 3.2 % (0.0-8.0); HEMATOCRIT 29.2 % (42-54); MEAN CORPUSCULAR HGB CONC 30.1 g/dL (32.0-36.0); NEUTROPHILS % (AUTO) 56.6 % (40.0-77.0); PLATELET COUNT (AUTO) 229 K/uL (130-400); RED CELL DISTRIBUTION WIDTH 15.9 % (11.0-15.5); WHITE BLOOD COUNT (AUTO) 8.4 K/uL (4.8-10.8)
[2021-08-30 15:41] LABS: CREATININE 0.8 mg/dL (0.5-1.5); POTASSIUM 4.8 mmol/L (3.5-5.1)
[2021-08-30 15:42] LABS: INR 1.12 (0.85-1.15); PROTHROMBIN TIME 12.1 SEC (9.6-11.6)
[2021-08-31 09:34] VITALS: BP 169/57
== END | disposition home or self-care (01) ==
LOC: DAH 10:00 → EDSTATUS 14:00
PROVIDERS: ATTEND Internal Medicine Cardiovascular Disease
DX: Z01.810 Encounter for preprocedural cardiovascular examination (principal); I48.0 Paroxysmal atrial fibrillation; Z79.01 Long term (current) use of anticoagulants
CPT/HCPCS: 36415; 80048; 85025; 85610; 85730; 87635; 93005; C9803

== ENCOUNTER → 2021-09-15 | Outpatient (CLI) | payer MEDICARE ==
[~2021-09-15] MED LIST changes: +0.9% NACL 500ML IV.SOLN 500 ML IV SCH; -DILT120C89 PO
[2021-09-15 13:50] LABS: BASOPHILS % (AUTO) 0.6 % (0.0-5.0); HEMATOCRIT 31.8 % (42-54); LYMPHOCYTES % (AUTO) 21.5 % (21.0-51.0); MEAN CORPUSCULAR HEMOGLOBIN 23.1 pg (27.0-33.0); MEAN CORPUSCULAR HGB CONC 28.9 g/dL (32.0-36.0); MEAN CORPUSCULAR VOLUME 79.7 fL (79-99); MONOCYTES % (AUTO) 7.3 % (3.0-13.0); PLATELET COUNT (AUTO) 223 K/uL (130-400); RED BLOOD CELL COUNT(AUTO) 3.99 MIL/uL (4.50-6.20); RED CELL DISTRIBUTION WIDTH 22.4 % (11.0-15.5); WHITE BLOOD COUNT (AUTO) 8.5 K/uL (4.8-10.8)
[2021-09-15 14:00] LABS: INR 1.08 (0.85-1.15); PROTHROMBIN TIME 11.7 SEC (9.6-11.6)
[2021-09-15 14:02] LABS: PARTIAL THROMBOPLASTIN TIME 28.5 SEC (26.3-35.5)
[2021-09-15 14:03] LABS: CREATININE 0.9 mg/dL (0.5-1.5); POTASSIUM 4.8 mmol/L (3.5-5.1)
== END | disposition home or self-care (01) ==
LOC: DAH 10:00 → EDSTATUS 13:00
PROVIDERS: ATTEND Internal Medicine Cardiovascular Disease
DX: Z01.810 Encounter for preprocedural cardiovascular examination (principal); I48.0 Paroxysmal atrial fibrillation; Z79.01 Long term (current) use of anticoagulants
CPT/HCPCS: 36415; 80048; 85025; 85610; 85730; 87635; 93005; C9803

== ENCOUNTER → 2023-03-15 | Outpatient (CLI) | payer MEDICARE ==
[~2023-03-15] MED LIST changes: -0.9% NACL 500ML IV.SOLN 500 ML IV SCH; -ROSU20TA31 PO; +ROSU20TA73 PO
[2023-03-15 16:17] LABS: BASOPHILS # (AUTO) 0.05 K/uL (0.00-0.20); BASOPHILS % (AUTO) 0.8 % (0.0-5.0); EOSINOPHILS # (AUTO) 0.17 K/uL (0.00-0.70); EOSINOPHILS % (AUTO) 2.8 % (0.0-8.0); HEMATOCRIT 38.8 % (42-54); IMMATURE GRANULOCYTE ABSOLUTE 0.02 K/uL (0-1); LYMPHOCYTES # (AUTO) 1.1 K/uL (1.0-4.8); LYMPHOCYTES % (AUTO) 17.2 % (21.0-51.0); MEAN CORPUSCULAR HEMOGLOBIN 30.3 pg (27.0-33.0); MEAN CORPUSCULAR HGB CONC 31.7 g/dL (32.0-36.0); MEAN CORPUSCULAR VOLUME 95.6 fL (79-99); MONOCYTES # (AUTO) 0.5 K/uL (0.1-1.0); MONOCYTES % (AUTO) 8.7 % (3.0-13.0); NEUTROPHILS # (AUTO) 4.3 K/uL (1.8-7.7); NEUTROPHILS % (AUTO) 70.2 % (40.0-77.0); PLATELET COUNT (AUTO) 175 K/uL (130-400); RED BLOOD CELL COUNT(AUTO) 4.06 MIL/uL (4.50-6.20); RED CELL DISTRIBUTION WIDTH 15.6 % (11.0-15.5); WHITE BLOOD COUNT (AUTO) 6.1 K/uL (4.8-10.8)
[2023-03-15 16:39] LABS: ALBUMIN 3.6 g/dL (3.5-5.0); CREATININE 0.8 mg/dL (0.5-1.5); MAGNESIUM 1.8 mg/dL (1.80-2.40); POTASSIUM 3.5 mmol/L (3.5-5.1); TOTAL PROTEIN, SERUM 7.7 g/dL (6.0-8.3)
== END | disposition home or self-care (01) ==
LOC: LAB 12:40
PROVIDERS: ATTEND Internal Medicine Cardiovascular Disease
DX: I48.0 Paroxysmal atrial fibrillation (principal)
CPT/HCPCS: 36415; 80053; 83735; 85025

== ENCOUNTER → 2023-05-08 | Outpatient (CLI) | payer MEDICARE ==
[2023-05-08 16:39] LABS: BASOPHILS # (AUTO) 0.07 K/uL (0.00-0.20); BASOPHILS % (AUTO) 1.1 % (0.0-5.0); EOSINOPHILS # (AUTO) 0.17 K/uL (0.00-0.70); EOSINOPHILS % (AUTO) 2.6 % (0.0-8.0); HEMATOCRIT 33.9 % (42-54); IMMATURE GRANULOCYTE ABSOLUTE 0.03 K/uL (0-1); LYMPHOCYTES # (AUTO) 1.3 K/uL (1.0-4.8); LYMPHOCYTES % (AUTO) 20.6 % (21.0-51.0); MEAN CORPUSCULAR HEMOGLOBIN 27.1 pg (27.0-33.0); MEAN CORPUSCULAR VOLUME 87.6 fL (79-99); MONOCYTES # (AUTO) 0.7 K/uL (0.1-1.0); MONOCYTES % (AUTO) 10.4 % (3.0-13.0); NEUTROPHILS # (AUTO) 4.2 K/uL (1.8-7.7); NEUTROPHILS % (AUTO) 64.8 % (40.0-77.0); PLATELET COUNT (AUTO) 214 K/uL (130-400); RED BLOOD CELL COUNT(AUTO) 3.87 MIL/uL (4.50-6.20); RED CELL DISTRIBUTION WIDTH 14.6 % (11.0-15.5); WHITE BLOOD COUNT (AUTO) 6.5 K/uL (4.8-10.8)
[2023-05-08 17:05] LABS: ALBUMIN 3.3 g/dL (3.5-5.0); BILIRUBIN,TOTAL 0.8 mg/dL (0.2-1.0); MAGNESIUM 1.8 mg/dL (1.80-2.40); POTASSIUM 3.7 mmol/L (3.5-5.1); TOTAL PROTEIN, SERUM 7.6 g/dL (6.0-8.3)
== END | disposition home or self-care (01) ==
LOC: LAB 11:58
PROVIDERS: ATTEND Internal Medicine Cardiovascular Disease
DX: I48.0 Paroxysmal atrial fibrillation (principal)
CPT/HCPCS: 36415; 80053; 83735; 85025

== ENCOUNTER 2023-06-14 05:46 | Observation (INO) | payer MEDICARE ==
[2023-06-12 14:17] LABS: BASOPHILS # (AUTO) 0.05 K/uL (0.00-0.20); BASOPHILS % (AUTO) 0.6 % (0.0-5.0); EOSINOPHILS # (AUTO) 0.12 K/uL (0.00-0.70); EOSINOPHILS % (AUTO) 1.5 % (0.0-8.0); HEMATOCRIT 36.3 % (42-54); IMMATURE GRANULOCYTE ABSOLUTE 0.03 K/uL (0-1); LYMPHOCYTES # (AUTO) 1.3 K/uL (1.0-4.8); LYMPHOCYTES % (AUTO) 16.2 % (21.0-51.0); MEAN CORPUSCULAR HEMOGLOBIN 25.8 pg (27.0-33.0); MEAN CORPUSCULAR HGB CONC 32.5 g/dL (32.0-36.0); MEAN CORPUSCULAR VOLUME 79.3 fL (79-99); MONOCYTES # (AUTO) 0.7 K/uL (0.1-1.0); MONOCYTES % (AUTO) 9.1 % (3.0-13.0); NEUTROPHILS # (AUTO) 5.6 K/uL (1.8-7.7); NEUTROPHILS % (AUTO) 72.2 % (40.0-77.0); PLATELET COUNT (AUTO) 215 K/uL (130-400); RED BLOOD CELL COUNT(AUTO) 4.58 MIL/uL (4.50-6.20); RED CELL DISTRIBUTION WIDTH 14.8 % (11.0-15.5); WHITE BLOOD COUNT (AUTO) 7.8 K/uL (4.8-10.8)
[2023-06-12 14:25] VITALS: BP 157/77; PULSE 110; RESP 18
[2023-06-12 14:29] LABS: POTASSIUM 3.8 mmol/L (3.5-5.1)
[2023-06-12 14:30] LABS: PARTIAL THROMBOPLASTIN TIME 29.6 SEC (26.3-35.5)
[2023-06-12 15:07] LABS: INR 1.04 (0.85-1.15)
[2023-06-14] VITALS (26 sets, daily range): BP systolic 98–140; BP diastolic 46–75; PULSE 51–118; RESP 12–25; O2SAT 95–100
[~2023-06-14] VITALS: Ht 167.6 cm; Wt 98.6 kg
[~2023-06-14 05:46] MED LIST changes: +DIGO0.12 PO; -DILT120T PO; +DILT240C93 PO; +DOFE250C4 PO; +IRON COMPLEX PO; +MILK THISTLE PO; +MIRALAX PO; +MVI PO; -SOTA80TA PO; +VITAMIN C PO
[2023-06-14] MEDS: 0.9%NACL 1000ML 1,000 ML IV ONE (06:38)
[2023-06-14] MEDS ORDERED: PROPOFOL 10 MG/ML 20ML VIAL IV ONE (06:58)
[2023-06-14] MEDS ORDERED: MIDAZOLAM HCL 1 MG/ML 2ML VIAL ONE (06:58)
[2023-06-14] MEDS ORDERED: FENTANYL CITRATE PF 50 MCG/1 ML 2ML VIAL ONE ×3 (06:59→11:41)
[2023-06-14] MEDS ORDERED: NOREPINEPHRINE BITARTRATE 1 MG/1 ML ML IV ONE (07:07)
[2023-06-14] MEDS ORDERED: ONDANSETRON 4MG INJ ONE (07:07)
[2023-06-14] MEDS ORDERED: LIDOCAINE HCL 400MG/20ML VIAL ONE (07:17)
[2023-06-14] MEDS ORDERED: HEPARIN 10,000 UNIT/10ML (1,000 UNIT/ML) VIAL ONE ×2 (07:17→09:00)
[2023-06-14] MEDS ORDERED: ROCURONIUM BROMIDE 10MG/1ML 5ML VL ONE (07:19)
[2023-06-14] MEDS ORDERED: ATROPINE 1MG SYG IVP ONE (07:44)
[2023-06-14] MEDS ORDERED: PHENYLEPHRINE HCL 10 MG/ML 1ML VIAL IV ONE ×3 (08:03→10:28)
[2023-06-14] MEDS ORDERED: IOHEXOL-350 50ML VIAL IV ONE (08:49)
[2023-06-14] MEDS ORDERED: PROTAMINE SULFATE 10 MG/ML 25ML VIAL IV ONE (11:14)
[2023-06-14] MEDS ORDERED: GLYCOPYRROLATE 0.2 MG/ML 5 ML VIAL ONE (11:41)
[2023-06-14] MEDS ORDERED: NEOSTIGMINE METHYLSULFATE 1MG/ML IV ONE (11:41)
[2023-06-14] MEDS ORDERED: ACETAMINOPHEN WITH CODEINE 1 TAB TAB PO PRN (12:30)
[2023-06-14] MEDS ORDERED: ACETAMINOPHEN 325 MG TAB PO PRN (12:30)
[2023-06-14] MEDS ORDERED: DEXTROSE 50%-WATER 50 ML DISP.SYRIN IV PRN (15:00)
[2023-06-14] MEDS ORDERED: GLUCAGON 1MG KIT 1 MG ML IM PRN (15:00)
[2023-06-14] MEDS: DIGOXIN 125 MCG TABLET PO SCH (15:44)
[2023-06-14] MEDS: PANTOPRAZOLE 40 MG TAB DR PO SCH (15:44)
[2023-06-14] MEDS: INSULIN HUMULIN R 100 UNIT/ML 3ML SQ SCH (15:47)
[2023-06-14] MEDS: SUCRALFATE 1 GM TABLET PO SCH (17:32)
[2023-06-14] MEDS: METFORMIN HCL 500 MG TABLET PO SCH (19:31)
[2023-06-14] MEDS: APIXABAN 5 MG TABLET PO SCH (20:13)
[2023-06-14] MEDS: DILTIAZEM CD 240 MG PO SCH (20:13)
[2023-06-14] MEDS ORDERED: DILTIAZEM 120MG SR CAP PO SCH (21:00)
[2023-06-15] VITALS (7 sets, daily range): BP systolic 114–127; BP diastolic 54–57; PULSE 66–72; RESP 17–20; O2SAT 95
[2023-06-15] MEDS: ASPIRIN 81MG CHEW TAB PO SCH (07:44)
[2023-06-15] MEDS: ALLOPURINOL 100 MG TABLET PO SCH (07:45)
[2023-06-15] MEDS: PANTOPRAZOLE 40 MG TAB DR PO SCH (07:45)
[2023-06-15] MEDS: LISINOPRIL 10 MG TABLET PO SCH (07:45)
[2023-06-15] MEDS ORDERED: SUCR1TAB PO (09:23)
[2023-06-15] MEDS ORDERED: PANT40TA PO (09:23)
== END 2023-06-15 11:50 | disposition home or self-care (01) ==
LOC: DAH 05:46 → DAHIP 05:47 → DAH 05:47 → 2CV 13:28
PROVIDERS: ADMIT Internal Medicine Cardiovascular Disease; ATTEND Internal Medicine Cardiovascular Disease
DX: I48.0 Paroxysmal atrial fibrillation (principal); I25.10 Atherosclerotic heart disease of native coronary artery without angina pectoris; I10 Essential (primary) hypertension; E78.5 Hyperlipidemia, unspecified; G47.33 Obstructive sleep apnea (adult) (pediatric); K21.9 Gastro-esophageal reflux disease without esophagitis; E66.01 Morbid (severe) obesity due to excess calories; Z95.1 Presence of aortocoronary bypass graft; Z79.01 Long term (current) use of anticoagulants; Z87.891 Personal history of nicotine dependence; Z79.899 Other long term (current) drug therapy
CPT/HCPCS: 80048; 85025; 85610; 85730; 36415; 93005 ×2; 93656; 85347 ×6; 82948 ×5; C1769; C1894 ×5; C1732 ×2; C1893; A4215 ×2; C1731; A4649 ×2; C1766; G0378 ×24; J3010 ×3; J3490 ×4; J7030; J2720; J0461; J1644 ×3; J2250; J2704; J2405; J2710; J2371 ×3; Q9967; J1815 ×3; A4223 ×3; A4222; A4221; A4663; A4216; A4606

== ENCOUNTER → 2023-06-25 | Outpatient (CLI) | payer MEDICARE ==
[~2023-06-25] MED LIST changes: -DIGO0.12 PO; +PANT40TA PO; +SUCR1TAB PO
[2023-06-25 12:26] LABS: BASOPHILS # (AUTO) 0.05 K/uL (0.00-0.20); BASOPHILS % (AUTO) 0.7 % (0.0-5.0); EOSINOPHILS # (AUTO) 0.14 K/uL (0.00-0.70); EOSINOPHILS % (AUTO) 2.1 % (0.0-8.0); HEMATOCRIT 30.2 % (42-54); IMMATURE GRANULOCYTE ABSOLUTE 0.03 K/uL (0-1); LYMPHOCYTES # (AUTO) 1.1 K/uL (1.0-4.8); LYMPHOCYTES % (AUTO) 15.8 % (21.0-51.0); MEAN CORPUSCULAR HEMOGLOBIN 24.9 pg (27.0-33.0); MEAN CORPUSCULAR HGB CONC 30.5 g/dL (32.0-36.0); MEAN CORPUSCULAR VOLUME 81.8 fL (79-99); MONOCYTES # (AUTO) 0.6 K/uL (0.1-1.0); MONOCYTES % (AUTO) 8.6 % (3.0-13.0); NEUTROPHILS # (AUTO) 4.9 K/uL (1.8-7.7); NEUTROPHILS % (AUTO) 72.4 % (40.0-77.0); PLATELET COUNT (AUTO) 207 K/uL (130-400); RED BLOOD CELL COUNT(AUTO) 3.69 MIL/uL (4.50-6.20); RED CELL DISTRIBUTION WIDTH 15.8 % (11.0-15.5); WHITE BLOOD COUNT (AUTO) 6.7 K/uL (4.8-10.8)
[2023-06-25 12:46] LABS: ALBUMIN 3.1 g/dL (3.5-5.0); BILIRUBIN,TOTAL 0.6 mg/dL (0.2-1.0); POTASSIUM 3.3 mmol/L (3.5-5.1); TOTAL PROTEIN, SERUM 7.1 g/dL (6.0-8.3)
[2023-06-25 12:56] LABS: % IRON SATURATION 7.4 % (30-44)
== END | disposition home or self-care (01) ==
LOC: LAB 10:39
PROVIDERS: ATTEND Internal Medicine Cardiovascular Disease
DX: K92.1 Melena (principal); D64.9 Anemia, unspecified
CPT/HCPCS: 36415; 80053; 82728; 83540; 83550; 85025

== ENCOUNTER 2023-07-27 08:43 | Emergency (ER) | payer MEDICARE ==
[~2023-07-27] VITALS: Ht 165.1 cm; Wt 99.8 kg
[2023-07-27 09:08] LABS: APPEARANCE,URINE CLEAR (CLEAR); BILIRUBIN,URINE NEGATIVE (NEGATIVE); COLOR,URINE YELLOW (YELLOW); GLUCOSE, URINE (UA) 30 mg/dL (NEGATIVE); KETONES,URINE 5 mg/dL (NEGATIVE); LEUKOCYTE ESTERASE ,URINE NEGATIVE Leu/uL (NEGATIVE); NITRATE,URINE NEGATIVE (NEGATIVE); OCCULT BLOOD,URINE NEGATIVE (NEGATIVE); PROTEIN,URINE 100 mg/dL (NEGATIVE)
[2023-07-27 09:09] LABS: BASOPHILS # (AUTO) 0.05 K/uL (0.00-0.20); BASOPHILS % (AUTO) 0.3 % (0.0-5.0); EOSINOPHILS # (AUTO) 0.04 K/uL (0.00-0.70); EOSINOPHILS % (AUTO) 0.2 % (0.0-8.0); IMMATURE GRANULOCYTE ABSOLUTE 0.25 K/uL (0-1); LYMPHOCYTES # (AUTO) 0.7 K/uL (1.0-4.8); LYMPHOCYTES % (AUTO) 4.2 % (21.0-51.0); MEAN CORPUSCULAR HEMOGLOBIN 22.9 pg (27.0-33.0); MEAN CORPUSCULAR VOLUME 76.3 fL (79-99); MONOCYTES # (AUTO) 0.8 K/uL (0.1-1.0); MONOCYTES % (AUTO) 4.5 % (3.0-13.0); NEUTROPHILS # (AUTO) 15.9 K/uL (1.8-7.7); NEUTROPHILS % (AUTO) 89.4 % (40.0-77.0); NUCLEATED RED BLOOD CELLS 0.6 % (0.0-0.19); PLATELET COUNT (AUTO) 290 K/uL (130-400); RED BLOOD CELL COUNT(AUTO) 3.67 MIL/uL (4.50-6.20); RED CELL DISTRIBUTION WIDTH 19.9 % (11.0-15.5); WHITE BLOOD COUNT (AUTO) 17.8 K/uL (4.8-10.8)
[2023-07-27 09:11] LABS: ADD UA MICROSCOPIC YES
[2023-07-27 09:14] LABS: CREATININE 1.2 mg/dL (0.5-1.3); POTASSIUM 4.4 mmol/L (3.5-5.1)
[2023-07-27 09:19] LABS: ALBUMIN 3.3 g/dL (3.5-5.0)
[2023-07-27 09:23] LABS: BACTERIA,URINE RARE /HPF (None Seen); MUCUS,URINE RARE LPF (None Seen); RBC,URINE 0-1 /HPF (0-1); SQUAMOUS EPITHELIAL CELL,UR FEW /HPF (0-2)
[2023-07-27] MEDS: 0.9%NACL 1000ML 1,000 ML IV ONE (09:57)
[2023-07-27] MEDS: ONDANSETRON 4MG INJ IVP ONE (09:58)
[2023-07-27] MEDS ORDERED: IOHEXOL 350 MG/ML 100ML INFUS..BTL IV ONE (11:46)
[2023-07-27] MEDS ORDERED: AMOX1TAB16 PO (12:48)
[2023-07-27] MEDS ORDERED: ONDA4TAB10 PO (12:48)
[2023-07-27 12:49] VITALS: BP 124/55; PULSE 84; RESP 18; O2SAT 98
== END 2023-07-27 13:04 | disposition home or self-care (01) ==
LOC: EDH 08:43
DX: K52.9 Noninfective gastroenteritis and colitis, unspecified (principal); D64.9 Anemia, unspecified; E11.9 Type 2 diabetes mellitus without complications; E78.00 Pure hypercholesterolemia, unspecified; I10 Essential (primary) hypertension; I48.91 Unspecified atrial fibrillation; Z79.01 Long term (current) use of anticoagulants; Z79.82 Long term (current) use of aspirin; Z79.84 Long term (current) use of oral hypoglycemic drugs; Z79.899 Other long term (current) drug therapy
CPT/HCPCS: 99284; 74177; 96374; 96361; 80053; 83690; 85025; 81001; 36415; J7030; J2405; Q9967